=== PATIENT | female | born 1995 | race Caucasian/White ===

== ENCOUNTER 2017-04-08 18:34 | Emergency (ER) | payer OTHER ==
--- NOTE | 2017-04-08 19:02 | EDPHY ---
H & P Time Seen by Provider: 04/08/17 18:40 HPI/ROS: CHIEF COMPLAINT: Left thumb pain HISTORY OF PRESENT ILLNESS: 21-year-old female presents emergency department complaining of left thumb pain after she slammed in the car door just prior to arrival. Patient is [id number]. Tetanus is up-to-date. She denies other complaints. Smoking Status: Never smoked Physical Exam: GEN: Awake, alert, oriented, no acute distress RESP: nl resp effort MSK: Left thumb with decreased range of motion at IP joint due to pain, swelling at IP joints, abrasion to medial and lateral thumb over middle phalanx. Sensation intact to light touch. Constitutional: Initial Vital Signs Temperature (C) 36.6 C 04/08/17 18:36 Heart Rate 94 04/08/17 18:36 Respiratory Rate 17 04/08/17 18:36 Blood Pressure 132/92 H 04/08/17 18:36 O2 Sat (%) 97 04/08/17 18:36 O2 Delivery Mode Room Air Allergies/Adverse Reactions: No Known Allergies Allergy (Unverified 04/08/17 18:36) Home Medications: Medication Instructions Recorded Zovia 1-35E Tablet 04/08/17 MDM/Departure - MDM Imaging Results: Imaging Impressions Finger X-Ray 04/08/17 18:54 Impression: No evidence for acute osseous abnormality left thumb. Imaging: I viewed and interpreted images myself - Depart Disposition: Home, Routine, Self-Care Clinical Impression: Contusion of left thumb without damage to nail, initial encounter Qualifiers: Encounter type: initial encounter Qualified Code(s): S60.012A - Contusion of left thumb without damage to nail, initial encounter Condition: Good Instructions: Contusion in Adults (ED) Additional Instructions: Keep your dressing in place for 48 hours, then you may remove it. Elevate your hand, take 600 mg of ibuprofen every 8 hours with food for pain. Return to the emergency department for any signs of infection, pain that is not controlled, any new symptoms or concerns. Referrals: NONE *PRIMARY CARE P,. [Primary Care Provider] - As per Instructions
[2017-04-08] MEDS ORDERED: IBUPROFEN 600 MG TAB PO ONE (19:41)
[2017-04-08 19:52] VITALS: BP 118/74; PULSE 70; RESP 14; TEMP 98.4; O2SAT 94
== END 2017-04-08 19:51 | disposition home or self-care (01) ==
DX: S60.012A Contusion of left thumb without damage to nail, initial encounter (principal); W23.0XXA Caught, crushed, jammed, or pinched between moving objects, initial encounter